=== PATIENT | male | born 1955 | race Caucasian/White ===

== ENCOUNTER 2021-09-17 11:54 | Inpatient (IN) | payer MEDICARE, OTHER ==
[~2021-09-17] VITALS: Ht 193 cm; Wt 37.0 kg
[2021-09-17] MEDS ORDERED: SODIUM CHLORIDE 0.9% 1,000 ML IV ONE (12:15)
[2021-09-17 13:02] LABS: Hematocrit 42.2 % (41.0-53.0); Hemoglobin 13.2 g/dL (13.5-17.5); Mean Corpuscular Hemoglobin 27.1 pg (28.0-32.0); Mean Corpuscular Hgb Conc. 31.3 g/dL (32.0-36.0); Mean Corpuscular Volume 86.5 fL (80.0-100.0); Red Blood Cells 4.88 10^6/uL (4.5-5.90); Red Cell Distribution Width 17.6 % (11.8-14.3)
[2021-09-17 13:09] LABS: Basophils % (manual) 0 (0.0-2.0); Blast Cells 0; Eosinophils % (manual) 0 (0-7); Promyelocytes % 0; Reactive Lymphocytes 0
[2021-09-17 13:27] LABS: Albumin 2.2 g/dL (3.4-5.0); Calcium 8.9 mg/dL (8.5-10.1); Magnesium 2.5 mg/dL (1.6-2.6)
[2021-09-17 13:28] LABS: BUN/Creatinine Ratio 41.2
[2021-09-17 13:31] LABS: Bilirubin, Total 0.3 mg/dL (0.2-1.0); Total Protein 6.2 g/dL (6.4-8.2)
[2021-09-17 13:33] LABS: INR 1.11 (0.9-1.15); Partial Thromboplastin Time 28.3 sec (23.6-33.0)
[2021-09-17] MEDS ORDERED: MORPHINE SULFATE INJ 2 MG/ml SYRG IV PRN (15:00)
[2021-09-17] MEDS ORDERED: NITROGLYCERIN 0.4 MG SL TAB SL PRN (15:00)
[2021-09-17 15:18] LABS: Band Neutrophils % (manual) 2; Lymphocytes % (manual) 4 (10.0-50.0); Metamyelocytes % 2; Monocytes % (manual) 3 (0-12); Myelocytes % 1
[2021-09-17 18:05] VITALS: BP 123/63
[2021-09-17 18:22] VITALS: BP 123/63
[2021-09-17 21:55] VITALS: BP 111/68
[2021-09-17] MEDS ORDERED: PANTOPRAZOLE 40 MG TAB PO ONE (22:00)
[2021-09-17 22:34] LABS: Urine Amorphous Crystal FEW /hpf (None Seen); Urine Bacteria NONE SEEN /hpf (None Seen); Urine Blood Negative /uL (Negative); Urine Specific Gravity 1.016 (1.001-1.035); Urine WBC 2 /hpf (0 - 3)
[2021-09-18 04:47] VITALS: BP 132/70
[2021-09-18] MEDS ORDERED: ONDANSETRON HCL 4 MG/2 ML VIAL IV PRN (08:00)
[2021-09-18 08:20] VITALS: BP 108/62
[2021-09-18 09:00] VITALS: BP 108/62
[2021-09-18] MEDS ORDERED: methylPREDNISolone SOD SUCC 40 MG/ML VL IV ONE (10:00)
[2021-09-18] MEDS ORDERED: FURO40TA4 PO (10:01)
[2021-09-18] MEDS ORDERED: ROSU20TA14 PO (10:01)
[2021-09-18] MEDS ORDERED: PANT40TA57 PO (10:01)
[2021-09-18] MEDS ORDERED: AMIO200T33 PO (10:01)
[2021-09-18] MEDS ORDERED: PRE5T PO (10:01)
[2021-09-18] MEDS ORDERED: DIGO0.25 PO (10:01)
[2021-09-18] MEDS ORDERED: DOXY150T3 PO (10:01)
[2021-09-18] MEDS ORDERED: METR500T14 PO (10:01)
[2021-09-18] MEDS ORDERED: PROM1SOL4 PO (10:01)
[2021-09-18] MEDS ORDERED: APIX2.5T PO (10:01)
[2021-09-18] MEDS ORDERED: LEVO-28 PO (10:01)
[2021-09-18] MEDS ORDERED: FLEC100T PO (10:01)
[2021-09-18] MEDS: PANTOPRAZOLE 40 MG TAB PO SCH ×2 (10:55→20:39)
[2021-09-18 12:43] VITALS: BP 101/53
[2021-09-18] MEDS: ALBUTEROL SULF 2.5 MG/0.5ML(0.5%) NEB SOLN NEB SCH ×3 (15:03→21:32)
[2021-09-18 16:53] VITALS: BP 102/59
[2021-09-18 22:00] VITALS: BP 113/67
[2021-09-19] MEDS: ALBUTEROL SULF 2.5 MG/0.5ML(0.5%) NEB SOLN NEB SCH ×6 (02:12→22:15)
[2021-09-19 05:00] VITALS: BP 130/67
[2021-09-19 09:00] VITALS: BP 102/55
[2021-09-19] MEDS: PANTOPRAZOLE 40 MG TAB PO SCH ×2 (09:38→21:18)
[2021-09-19 13:00] VITALS: BP 102/63
[2021-09-19 17:00] VITALS: BP 129/66
[2021-09-19 22:00] VITALS: BP 110/65
[2021-09-20] MEDS: ALBUTEROL SULF 2.5 MG/0.5ML(0.5%) NEB SOLN NEB SCH ×6 (02:11→21:57)
[2021-09-20 04:57] VITALS: BP 133/69
[2021-09-20 09:00] VITALS: BP 111/69
[2021-09-20] MEDS: cefTRIAXone 1GM/50ML D5W 50 ML IV SCH (09:02)
[2021-09-20] MEDS: PANTOPRAZOLE 40 MG TAB PO SCH ×2 (09:58→21:57)
[2021-09-20 13:00] VITALS: BP_SYST 121; BP_SYST 135; BP_DIAS 64; BP_DIAS 70
[2021-09-20] MEDS: IPRATROPIUM BROM 0.5 MG/2.5ML INH SOL NEB SCH ×3 (14:05→21:57)
[2021-09-20 16:58] VITALS: BP 115/70
[2021-09-20 22:00] VITALS: BP 97/60
[2021-09-21] MEDS: IPRATROPIUM BROM 0.5 MG/2.5ML INH SOL NEB SCH ×6 (02:30→22:54)
[2021-09-21] MEDS: ALBUTEROL SULF 2.5 MG/0.5ML(0.5%) NEB SOLN NEB SCH ×6 (02:30→22:54)
[2021-09-21 05:00] VITALS: BP 105/64
[2021-09-21] MEDS: cefTRIAXone 1GM/50ML D5W 50 ML IV SCH (08:47)
[2021-09-21 09:00] VITALS: BP 115/73
[2021-09-21] MEDS: PANTOPRAZOLE 40 MG TAB PO SCH ×2 (09:54→22:28)
[2021-09-21 12:40] VITALS: BP 102/60
[2021-09-21 15:02] VITALS: BP 102/60
[2021-09-21 17:00] VITALS: BP 96/57
[2021-09-21 22:20] VITALS: BP 106/55
[2021-09-22] VITALS (7 sets, daily range): BP systolic 83–114; BP diastolic 49–69
[2021-09-22] MEDS: ALBUTEROL SULF 2.5 MG/0.5ML(0.5%) NEB SOLN NEB SCH ×6 (01:49→21:41)
[2021-09-22] MEDS: IPRATROPIUM BROM 0.5 MG/2.5ML INH SOL NEB SCH ×6 (01:49→21:41)
[2021-09-22] MEDS: cefTRIAXone 1GM/50ML D5W 50 ML IV SCH (08:50)
[2021-09-22] MEDS: PANTOPRAZOLE 40 MG TAB PO SCH ×2 (08:50→22:22)
[2021-09-23] MEDS: IPRATROPIUM BROM 0.5 MG/2.5ML INH SOL NEB SCH ×6 (01:18→21:20)
[2021-09-23] MEDS: ALBUTEROL SULF 2.5 MG/0.5ML(0.5%) NEB SOLN NEB SCH ×6 (01:18→21:20)
[2021-09-23 05:00] VITALS: BP 122/71
[2021-09-23 05:44] LABS: Basophils # (auto) 0 10 ^3/uL (0-0.2); Basophils % (auto) 0.2 % (0.0-2.0); Eosinophils # (auto) 0.1 10 ^3/uL (0-0.8); Eosinophils % (auto) 0.7 % (0.0-7.0); Hematocrit 35.7 % (41.0-53.0); Hemoglobin 11.6 g/dL (13.5-17.5); Lymphocytes # (auto) 1.1 10 ^3/uL (0.4-5.4); Lymphocytes % (auto) 10.6 % (10.0-50.0); Mean Corpuscular Hemoglobin 28.1 pg (28.0-32.0); Mean Corpuscular Hgb Conc. 32.6 g/dL (32.0-36.0); Mean Corpuscular Volume 86.1 fL (80.0-100.0); Monocytes # (auto) 0.7 10 ^3/uL (0-1.3); Monocytes % (auto) 6.4 % (0.0-12.0); Neutrophils # (auto) 8.5 10 ^3/uL (1.6-8.6); Neutrophils % (auto) 82.1 % (37.0-80.0); Nucleated Red Blood Cells % 0.1 %; Red Blood Cells 4.14 10^6/uL (4.5-5.90); Red Cell Distribution Width 18.2 % (11.8-14.3); White Blood Cell 10.4 10^3/uL (4.4-10.8)
[2021-09-23 05:45] LABS: INR 1.2 (0.9-1.15); Partial Thromboplastin Time 32.2 sec (23.6-33.0)
[2021-09-23 05:48] LABS: BUN/Creatinine Ratio 38.6; Calcium 8.4 mg/dL (8.5-10.1); Potassium 4.8 mmol/L (3.5-5.1)
[2021-09-23] MEDS: cefTRIAXone 1GM/50ML D5W 50 ML IV SCH (08:13)
[2021-09-23] MEDS: PANTOPRAZOLE 40 MG TAB PO SCH ×2 (08:14→22:11)
[2021-09-23 09:00] VITALS: BP 117/77
[2021-09-23 13:00] VITALS: BP 128/85
[2021-09-23] MEDS ORDERED: VANCOMYCIN 1GM/250ML 250 ML IV ONE (14:56)
[2021-09-23] MEDS ORDERED: VANCOMYCIN 1GM/250ML 250 ML IV SCH (15:00)
[2021-09-23] MEDS ORDERED: MIDAZOLAM HCL 2MG/2ML 2ml VIAL (1mg/ml) ONE (15:08)
[2021-09-23] MEDS ORDERED: VANCOMYCIN HCL 1000 MG VL ONE (15:08)
[2021-09-23] MEDS ORDERED: fentaNYL CITRATE 100 MCG/2 ML VL ONE (15:08)
[2021-09-23] MEDS ORDERED: LIDOCAINE 2%HCL (LOCAL ANESTH.) INJ 10ml MDV ONE ×2 (15:22→16:06)
[2021-09-23] MEDS ORDERED: IOHEXOL 350 MG/ML 100ML IJ ONE (16:01)
[2021-09-23] MEDS ORDERED: HYDROcodone-ACET 5/325MG TAB PO PRN (17:00)
[2021-09-23] MEDS ORDERED: ACETAMINOPHEN 325 MG TAB PO PRN (17:00)
[2021-09-23] MEDS ORDERED: ALBUTEROL SULF 2.5 MG/0.5ML(0.5%) NEB SOLN NEB PRN (20:15)
[2021-09-23] MEDS: VANCOMYCIN 1GM/250ML 250 ML IV SCH (22:12)
[2021-09-23 22:15] VITALS: BP 111/65
[2021-09-23] MEDS ORDERED: methylPREDNISolone SOD SUCC 125 MG/2 ML VL IV ONE (22:15)
[2021-09-24] MEDS: ALBUTEROL SULF 2.5 MG/0.5ML(0.5%) NEB SOLN NEB SCH ×6 (01:48→22:43)
[2021-09-24] MEDS: IPRATROPIUM BROM 0.5 MG/2.5ML INH SOL NEB SCH ×6 (01:48→22:43)
[2021-09-24 05:09] VITALS: BP 115/75
[2021-09-24] MEDS: cefTRIAXone 1GM/50ML D5W 50 ML IV SCH (08:34)
[2021-09-24] MEDS: PANTOPRAZOLE 40 MG TAB PO SCH ×2 (08:34→22:35)
[2021-09-24] MEDS: VANCOMYCIN 1GM/250ML 250 ML IV SCH (11:56)
[2021-09-24 12:51] VITALS: BP 115/75
[2021-09-24 13:00] VITALS: BP 98/66
[2021-09-24 17:00] VITALS: BP 111/65
[2021-09-24 18:41] VITALS: BP 111/65
[2021-09-24 21:57] VITALS: BP 119/59
[2021-09-25] MEDS: ALBUTEROL SULF 2.5 MG/0.5ML(0.5%) NEB SOLN NEB SCH ×3 (02:24→09:49)
[2021-09-25] MEDS: IPRATROPIUM BROM 0.5 MG/2.5ML INH SOL NEB SCH ×3 (02:24→09:48)
[2021-09-25 05:00] VITALS: BP 127/70
[2021-09-25 05:30] VITALS: BP 96/58
[2021-09-25] MEDS: cefTRIAXone 1GM/50ML D5W 50 ML IV SCH (09:00)
[2021-09-25 09:21] VITALS: BP 96/52
[2021-09-25] MEDS: PANTOPRAZOLE 40 MG TAB PO SCH (10:00)
== END 2021-09-25 11:40 | disposition left against medical advice (07) | DRG 242 ==
LOC: ER 11:54 → TELE 14:52 → TELE-CENTR 18:04
PROVIDERS: ADMIT Specialist; ATTEND Specialist
PROC: 0JH606Z Insertion of Pacemaker, Dual Chamber into Chest Subcutaneous Tissue and Fascia, Open Approach (ICD-10-PCS; principal; 2021-09-23)
PROC: 02H63JZ Insertion of Pacemaker Lead into Right Atrium, Percutaneous Approach (ICD-10-PCS; 2021-09-23)
PROC: 02HK3JZ Insertion of Pacemaker Lead into Right Ventricle, Percutaneous Approach (ICD-10-PCS; 2021-09-23)
DX: I49.5 Sick sinus syndrome (principal); E43 Unspecified severe protein-calorie malnutrition; J96.20 Acute and chronic respiratory failure, unspecified whether with hypoxia or hypercapnia; E87.4 Mixed disorder of acid-base balance; J44.1 Chronic obstructive pulmonary disease with (acute) exacerbation; I44.2 Atrioventricular block, complete; Z68.1 Body mass index [BMI] 19.9 or less, adult; R64 Cachexia; I10 Essential (primary) hypertension; Z53.29 Procedure and treatment not carried out because of patient's decision for other reasons; Z20.822 Contact with and (suspected) exposure to COVID-19
CPT/HCPCS: 33208; 36415; 71045; 71046; 80048; 80053; 81001; 83735; 84443; 84484; 85007; 85025; 85027; 85610; 85730; 86850; 86900; 86901; 87081; 93005; 94640; 96360; 99152; 99153; C1785; G0378; J0696; J2001; J2250